=== PATIENT | female | born 1990 | race Caucasian/White ===

== ENCOUNTER 2018-04-28 04:51 | Emergency (ER) | payer OTHER ==
[~2018-04-28] VITALS: Ht 165.1 cm; Wt 121.1 kg
[2018-04-28 04:58] VITALS: Ht 165.1 cm; Wt 121.1 kg
[2018-04-28 06:14] LABS: microscopic required? YES; urine erythrocyte 3+ (NEGATIVE)
[2018-04-28 06:27] LABS: CALCIUM 7.9 mg/dL (8.5-10.1); CARBON DIOXIDE 29.4 mmol/L (21-32); CHLORIDE SERUM 109 mmol/L (98-107); CREATININE SERUM 0.7 mg/dL (0.6-1.0); GFR1 > 60 mL/min; GLUCOSE SERUM 108 mg/dL (74-106); POTASSIUM SERUM 4.3 mmol/L (3.5-5.1); SODIUM SERUM 143 mmol/L (136-145)
[2018-04-28 06:31] LABS: ALKALINE PHOSPHATASE 66 U/L (46-116); ALT/SGPT 35 U/L (14-59); AST/SGOT 22 U/L (15-37); BILIRUBIN TOTAL 0.3 mg/dL (0.20-1.00); LIPASE 131 IU/L (73-393); TOTAL PROTEIN, SERUM 6.2 g/dL (6.4-8.2)
[2018-04-28 06:36] LABS: BASOPHIL % 0.1 % (0-2); PLATELET COUNT 153 x10^3mcL (130-400)
[2018-04-28 06:45] LABS: ALBUMIN 3.1 g/dL (3.4-5.0); AMYLASE 22 U/L (25-115)
[2018-04-28 07:37] VITALS: BP 108/80
== END 2018-04-28 07:57 | disposition home or self-care (01) ==
LOC: ED 04:51
PROVIDERS: Emergency Medicine
DX: N23 Unspecified renal colic (principal); R31.9 Hematuria, unspecified
CPT/HCPCS: 83880; J1885; J2405; J7030

== ENCOUNTER 2018-06-30 16:54 | Emergency (ER) | payer OTHER ==
[~2018-06-30] VITALS: Ht 165.1 cm; Wt 117.0 kg
[2018-06-30 17:14] VITALS: Ht 165.1 cm; Wt 117.0 kg
[2018-06-30 18:24] LABS: BASOPHIL % 0.2 % (0-2); PLATELET COUNT 245 x10^3mcL (130-400); RED CELL DISTRIBUTION WIDTH 14.1 % (11.5-14.5)
[2018-06-30 18:29] LABS: UA SPECIFIC GRAVITY 1.015 (1.005-1.035); microscopic required? YES; urine erythrocyte 3+ (NEGATIVE)
[2018-06-30 18:33] LABS: CALCIUM 9.3 mg/dL (8.5-10.1); CARBON DIOXIDE 24.5 mmol/L (21-32); CHLORIDE SERUM 105 mmol/L (98-107); CREATININE SERUM 0.9 mg/dL (0.6-1.0); GFR1 > 60 mL/min; GLUCOSE SERUM 120 mg/dL (74-106); POTASSIUM SERUM 4.1 mmol/L (3.5-5.1); SODIUM SERUM 142 mmol/L (136-145)
[2018-06-30 18:37] LABS: ALBUMIN 3.9 g/dL (3.4-5.0); ALKALINE PHOSPHATASE 94 U/L (46-116); ALT/SGPT 97 U/L (14-59); AMYLASE 24 U/L (25-115); AST/SGOT 49 U/L (15-37); BILIRUBIN TOTAL 0.64 mg/dL (0.20-1.00); LIPASE 89 IU/L (73-393); TOTAL PROTEIN, SERUM 7.8 g/dL (6.4-8.2)
[2018-06-30 20:53] VITALS: BP 125/83
== END 2018-06-30 20:53 | disposition home or self-care (01) ==
LOC: ED 16:54
PROVIDERS: Emergency Medicine
DX: N23 Unspecified renal colic (principal); E66.9 Obesity, unspecified
CPT/HCPCS: J1885; J2405; J7030; Q0092